=== PATIENT | female | born 1935 | race Caucasian/White ===

== ENCOUNTER 2019-07-04 15:51 | Inpatient (IN) ==
[2019-07-04 17:32] LABS: Hematocrit 32.4 % (35.3-44.9); Hemoglobin 10.8 g/dL (11.5-15.4); Mean Corpuscular HGB Conc 33.3 g/dL (31.6-35.5); Mean Corpuscular Hemoglobin 30.2 pg (28.0-33.3); Mean Corpuscular Volume 90.5 fL (83.0-100.0); Mean Platelet Volume 8.8 fL (9.4-12.4); Platelet Count 295 K/mcL (140-400); Red Blood Count 3.58 M/mcL (3.82-4.97); Red Cell Distribution Width 12.5 % (11.5-14.5); White Blood Count 8.4 K/mcL (4.3-11.1)
[2019-07-04 17:38] LABS: Bilirubin,Urine Negative (Negative); Blood,Urine Negative (Negative); Clarity,Urine Clear (Clear); Color,Urine Yellow (Yellow); Glucose,Urine (UA) Normal (Normal); Ketones,Urine Negative (Negative); Leukocyte Esterase,Urine Small (Negative); Nitrite,Urine Negative (Negative); PH,Urine 7.5 pH Units (5.0-8.0); Protein,Urine Negative (Neg-Trace); Specific Gravity,Urine 1.018 (1.010-1.025); Urobilinogen,Urine Normal (Normal)
[2019-07-04 17:42] LABS: Alanine Aminotransferase 13 Units/L (7-52); Albumin 3.6 g/dL (3.5-5.7); Albumin/Globulin Ratio 1.2 (1.1-2.2); Alkaline Phosphatase 45 Units/L (34-104); Aspartate Amino Transferase 16 Units/L (13-39); BUN/Creatinine Ratio 26 (6-26); Bilirubin,Direct 0.1 mg/dL (0.0-0.2); Bilirubin,Indirect 0.1 mg/dL (0.0-1.0); Bilirubin,Total 0.2 mg/dL (0.3-1.0); Blood Urea Nitrogen 16 mg/dL (8-23); Carbon Dioxide 26 mEq/L (23-29); Chloride 88 mEq/L (98-107); Glucose 134 mg/dL (70-105); Lipase 57 Units/L (11-82); Osmolality,Calculated 255 (280-300); Potassium 4.6 mEq/L (3.5-5.1); Sodium 121 mEq/L (136-145); Total Protein 6.6 g/dL (6.4-8.9); Troponin I < 0.03 ng/mL (< 0.04); eGFR For African Americans > 60 (> 60); eGFR For Non-African Americans > 60 (> 60)
[2019-07-04 17:44] LABS: Bacteria,Urine None Seen per hpf (None-Few); Hyaline Casts,Urine None Seen per lpf (None-Few); RBC,Urine 0-3 per hpf (0-3); Squamous Epithelial Cell,Urine Moderate per lpf (None-Few)
[2019-07-04] MEDS ORDERED: 0.9 % Sodium Chloride 250 ML IVC ONE (19:03)
[2019-07-04] MEDS ORDERED: Naloxone 0.4 MG/ML INJ IVP PRN (21:26)
[2019-07-04] MEDS ORDERED: Sennosides/Docusate Sodium TABLET PO PRN (21:29)
[2019-07-04] MEDS ORDERED: GI Cocktail 40 ML EACH PO ONE (21:50)
[2019-07-04] MEDS ORDERED: Pantoprazole 40 MG VIAL IVP ONE (21:50)
[2019-07-04] MEDS ORDERED: Gabapentin 300 MG CAPSULE PO ONE (21:51)
[2019-07-04] MEDS ORDERED: Sennosides/Docusate Sodium TABLET PO ONE (22:07)
[2019-07-04] MEDS: rOPINIRole 1 MG TABLET PO SCH (22:28)
[2019-07-04 22:31] LABS: % Iron Saturation 9 % (15-50); Iron 37 mcg/dL (50-170); Transferrin 291 mg/dL (203-362)
[2019-07-04 22:38] LABS: BUN/Creatinine Ratio 25 (6-26); Blood Urea Nitrogen 14 mg/dL (8-23); Calcium 8.7 mg/dL (8.6-10.3); Carbon Dioxide 25 mEq/L (23-29); Chloride 90 mEq/L (98-107); Glucose 229 mg/dL (70-105); Osmolality,Calculated 258 (280-300); Potassium 4.1 mEq/L (3.5-5.1); Sodium 120 mEq/L (136-145); eGFR For African Americans > 60 (> 60); eGFR For Non-African Americans > 60 (> 60)
[2019-07-04 22:45] LABS: Thyroid Stimulating Hormone 3.166 mcIU/mL (0.340-5.600)
[2019-07-04 22:49] LABS: Ferritin 21 ng/mL (10-120)
[2019-07-04] MEDS: 0.9 % Sodium Chloride 1,000 ML IVC SCH (23:02)
[2019-07-05 03:15] LABS: BUN/Creatinine Ratio 21 (6-26); Blood Urea Nitrogen 11 mg/dL (8-23); Calcium 8.4 mg/dL (8.6-10.3); Carbon Dioxide 26 mEq/L (23-29); Chloride 92 mEq/L (98-107); Glucose 143 mg/dL (70-105); Osmolality,Calculated 254 (280-300); Potassium 4.1 mEq/L (3.5-5.1); Sodium 121 mEq/L (136-145); eGFR For African Americans > 60 (> 60); eGFR For Non-African Americans > 60 (> 60)
[2019-07-05] MEDS: *HR* Heparin 5,000 UNIT/ML VIAL SQ SCH ×2 (05:27→16:41)
[2019-07-05] MEDS: 0.9 % Sodium Chloride 1,000 ML IVC SCH (09:33)
[2019-07-05] MEDS: Insulin LISPRO 300 UNITS/3 ML VIAL SQ SCH ×4 (09:35→21:12)
[2019-07-05] MEDS: carvediloL 6.25 MG TABLET PO SCH (16:40)
[2019-07-05] MEDS: rOPINIRole 1 MG TABLET PO SCH (20:29)
[2019-07-05] MEDS: Carbidopa/Levodopa 25/100 TABLET PO SCH (20:29)
[2019-07-06 04:54] LABS: Basophils % 0.3 %; Eosinophils # 0.1 K/mcL (0.0-0.6); Eosinophils % 0.7 %; Hematocrit 30.3 % (35.3-44.9); Hemoglobin 10.1 g/dL (11.5-15.4); Immature Granulocytes % 0.4 % (0-4); Lymphocytes # 1.8 K/mcL (0.6-4.6); Lymphocytes % 26.1 %; Mean Corpuscular HGB Conc 33.3 g/dL (31.6-35.5); Mean Corpuscular Hemoglobin 30.7 pg (28.0-33.3); Mean Corpuscular Volume 92.1 fL (83.0-100.0); Mean Platelet Volume 8.7 fL (9.4-12.4); Monocytes # 0.6 K/mcL (0.0-1.3); Monocytes % 8.3 %; Neutrophils # 4.5 K/mcL (1.6-8.9); Platelet Count 271 K/mcL (140-400); Red Blood Count 3.29 M/mcL (3.82-4.97); Red Cell Distribution Width 12.8 % (11.5-14.5); Segmented Neutrophils % 64.2 %
[2019-07-06 05:11] LABS: BUN/Creatinine Ratio 19 (6-26); Blood Urea Nitrogen 11 mg/dL (8-23); Calcium 8.7 mg/dL (8.6-10.3); Carbon Dioxide 26 mEq/L (23-29); Chloride 96 mEq/L (98-107); Glucose 171 mg/dL (70-105); Osmolality,Calculated 265 (280-300); Potassium 4.2 mEq/L (3.5-5.1); Sodium 126 mEq/L (136-145); eGFR For African Americans > 60 (> 60); eGFR For Non-African Americans > 60 (> 60)
[2019-07-06] MEDS: *HR* Heparin 5,000 UNIT/ML VIAL SQ SCH ×2 (05:50→17:16)
[2019-07-06] MEDS: Levothyroxine 25 MCG TABLET PO SCH (05:50)
[2019-07-06] MEDS: carvediloL 6.25 MG TABLET PO SCH (09:11)
[2019-07-06] MEDS: Insulin LISPRO 300 UNITS/3 ML VIAL SQ SCH ×4 (09:12→20:25)
[2019-07-06] MEDS: 0.9 % Sodium Chloride 1,000 ML IVC SCH (12:04)
[2019-07-06] MEDS ORDERED: Gabapentin 300 MG CAPSULE PO PRN (14:40)
[2019-07-06] MEDS: Sucralfate 1 GM TABLET PO SCH ×2 (17:17→21:16)
[2019-07-06] MEDS: rOPINIRole 1 MG TABLET PO SCH (21:16)
[2019-07-06] MEDS: Carbidopa/Levodopa 25/100 TABLET PO SCH (21:16)
[2019-07-07] MEDS: 0.9 % Sodium Chloride 1,000 ML IVC SCH (01:25)
[2019-07-07] MEDS: carvediloL 6.25 MG TABLET PO SCH (05:00)
[2019-07-07] MEDS: Levothyroxine 25 MCG TABLET PO SCH (05:01)
[2019-07-07] MEDS: *HR* Heparin 5,000 UNIT/ML VIAL SQ SCH ×2 (05:01→17:31)
[2019-07-07] MEDS: Aspirin 81 MG TAB.CHEW PO SCH (08:45)
[2019-07-07] MEDS: Sucralfate 1 GM TABLET PO SCH ×4 (08:46→21:02)
[2019-07-07] MEDS: Insulin LISPRO 300 UNITS/3 ML VIAL SQ SCH ×3 (08:46→17:31)
[2019-07-07 09:18] LABS: BUN/Creatinine Ratio 30 (6-26); Blood Urea Nitrogen 19 mg/dL (8-23); Calcium 8.8 mg/dL (8.6-10.3); Carbon Dioxide 24 mEq/L (23-29); Chloride 97 mEq/L (98-107); Glucose 254 mg/dL (70-105); Osmolality,Calculated 273 (280-300); Potassium 4.5 mEq/L (3.5-5.1); Sodium 126 mEq/L (136-145); eGFR For African Americans > 60 (> 60); eGFR For Non-African Americans > 60 (> 60)
[2019-07-07] MEDS ORDERED: Tolvaptan 15 MG TABLET PO ONE (09:19)
[2019-07-07 09:22] LABS: Basophils % 0.1 %; Eosinophils # 0.1 K/mcL (0.0-0.6); Eosinophils % 0.9 %; Hematocrit 30.6 % (35.3-44.9); Hemoglobin 9.8 g/dL (11.5-15.4); Immature Granulocytes % 0.6 % (0-4); Lymphocytes # 1.7 K/mcL (0.6-4.6); Mean Corpuscular Hemoglobin 29.7 pg (28.0-33.3); Mean Corpuscular Volume 92.7 fL (83.0-100.0); Mean Platelet Volume 8.9 fL (9.4-12.4); Monocytes # 0.5 K/mcL (0.0-1.3); Monocytes % 7.5 %; Neutrophils # 4.6 K/mcL (1.6-8.9); Platelet Count 294 K/mcL (140-400); Segmented Neutrophils % 65.9 %; White Blood Count 6.9 K/mcL (4.3-11.1)
[2019-07-07] MEDS ORDERED: Insulin LISPRO 300 UNITS/3 ML VIAL SQ SCH (13:11)
[2019-07-07] MEDS ORDERED: Insulin DETEMIR 100 UNIT/ML X5UNITS SQ SCH (21:00)
[2019-07-07] MEDS: Carbidopa/Levodopa 25/100 TABLET PO SCH (21:02)
[2019-07-07] MEDS: rOPINIRole 1 MG TABLET PO SCH (21:02)
[2019-07-08 05:34] LABS: Basophils % 0.1 %; Eosinophils # 0.2 K/mcL (0.0-0.6); Eosinophils % 1.8 %; Hematocrit 31.1 % (35.3-44.9); Hemoglobin 9.9 g/dL (11.5-15.4); Immature Granulocytes % 0.5 % (0-4); Lymphocytes # 2.2 K/mcL (0.6-4.6); Lymphocytes % 26.6 %; Mean Corpuscular HGB Conc 31.8 g/dL (31.6-35.5); Mean Corpuscular Hemoglobin 29.7 pg (28.0-33.3); Mean Corpuscular Volume 93.4 fL (83.0-100.0); Mean Platelet Volume 8.5 fL (9.4-12.4); Monocytes # 0.7 K/mcL (0.0-1.3); Monocytes % 8.3 %; Neutrophils # 5.3 K/mcL (1.6-8.9); Platelet Count 277 K/mcL (140-400); Red Blood Count 3.33 M/mcL (3.82-4.97); Red Cell Distribution Width 13.1 % (11.5-14.5); Segmented Neutrophils % 62.7 %; White Blood Count 8.4 K/mcL (4.3-11.1)
[2019-07-08] MEDS: *HR* Heparin 5,000 UNIT/ML VIAL SQ SCH (05:50)
[2019-07-08] MEDS: Levothyroxine 25 MCG TABLET PO SCH (05:50)
[2019-07-08 05:56] LABS: BUN/Creatinine Ratio 34 (6-26); Blood Urea Nitrogen 22 mg/dL (8-23); Calcium 9.1 mg/dL (8.6-10.3); Carbon Dioxide 30 mEq/L (23-29); Chloride 98 mEq/L (98-107); Glucose 172 mg/dL (70-105); Osmolality,Calculated 279 (280-300); Potassium 4.5 mEq/L (3.5-5.1); Sodium 131 mEq/L (136-145); eGFR For African Americans > 60 (> 60); eGFR For Non-African Americans > 60 (> 60)
[2019-07-08] MEDS: Aspirin 81 MG TAB.CHEW PO SCH (07:55)
[2019-07-08] MEDS: Sucralfate 1 GM TABLET PO SCH (07:55)
[2019-07-08] MEDS: carvediloL 6.25 MG TABLET PO SCH (07:55)
[2019-07-08] MEDS: Insulin LISPRO 300 UNITS/3 ML VIAL SQ SCH (07:56)
[2019-07-08 11:41] VITALS: BP 136/69
== END 2019-07-08 13:48 | disposition home or self-care (01) ==
LOC: EMEROOARM 15:51 → 2ANU 15:51 → SUATTDRO 20:23 → 2ANU 20:55
PROVIDERS: ADMIT Family Medicine; ATTEND Internal Medicine